=== PATIENT | female | born 1995 | race Caucasian/White ===

== ENCOUNTER 2022-12-21 16:17 | Emergency (ER) | payer OTHER, SELFPAY ==
[2022-12-21 16:30] VITALS: BP 142/83; PULSE 104; RESP 16; TEMP 36.5; O2SAT 97; BMI 35.8
--- NOTE | 2022-12-21 17:05 | ED.GENADULT ---
HPI - General Adult General Chief complaint: Sore Throat Stated complaint: Sore throat, headache Time Seen by Provider: 12/21/22 16:18 History of Present Illness HPI narrative: This 27-year-old female comes in with her mother reporting a sore throat and headache. She was seen yesterday in clinic urgent care and received prescriptions for prednisone and Augmentin. Her rapid strep test was negative there. She was told at that time to return if worsening. She states that she feels worse today in that she has a headache. She does not have any muffled voice or trismus. She does not report any fever. She does have some redness on the left side of her oropharynx and is concerned about possible tonsillar abscess. Related Data Home Medications Medication Instructions Recorded Confirmed clindamycin phosphate 1 % lotion topical 12/20/22 12/20/22 drospirenone 3 mg-ethinyl 1 tab PO DAILY 12/20/22 12/20/22 estradiol 0.02 mg tablet (Karen (28)) spironolactone 50 mg tablet 50 mg PO BID 12/20/22 12/20/22 Previous Rx's Medication Instructions Recorded amoxicillin 875 mg-potassium 1 tab PO BID 10 days #20 tabs 12/20/22 clavulanate 125 mg tablet ondansetron HCl 4 mg tablet 4 mg PO TID 10 days #30 tabs 12/20/22 prednisone 20 mg tablet 20 mg PO QDAY 5 days #5 tabs 12/20/22 Allergies Allergy/AdvReac Type Severity Reaction Status Date / Time amoxicillin [From Augmentin] AdvReac Unknown Gastrointestinal Verified 12/20/22 11:00 Upset clavulanic acid AdvReac Unknown Gastrointestinal Verified 12/20/22 11:00 [From Augmentin] Upset Review of Systems Status of ROS: Reports: 10 or more systems reviewed and unremarkable except as noted in History and below Narrative: Constitutional: No fevers, no weight gain or loss. Eyes: No discharge. No vision changes. HENT: No congestion, no ear pain. Sore throat as described above. Cardiovascular: No chest pain, no palpitations. Respiratory: No shortness of breath, no wheezes, no cough. Gastrointestinal: No abdominal pain, no vomiting, no diarrhea. Genitourinary: No dysuria, no hematuria. Musculoskeletal: Normal range of motion. Skin: No rashes, no pruritis. Neurological: No dizziness, weakness, sensory change, speech change. Endo/Heme/Allergies: No bruising or bleeding. No polydipsia. Pysch: no suicidality, no anxiety, no insomnia. All other systems reviewed and are negative. PFSH [facility] Social History Smoking Status: Never smoker Exam Narrative: Exam Narrative: Constitutional: Well-developed, well-nourished, no acute distress. HEENT: Normocephalic, atraumatic. Oropharynx has erythema without exudate or tonsillar hypertrophy. The erythema is on the left side of her oropharynx. There is no muffled voice or trismus. Neck: Normal range of motion. Nontender. Supple. Heart: Regular. No murmurs. Normal rate. Intact distal pulses. Lungs: Clear to auscultation. No chest discomfort. No wheezes, rhonchi, or rales. Abdomen: Normal bowel sounds. Nontender. No rebound tenderness. Genitalia: Deferred. Back: No midline tenderness. Normal range of motion. Extremities: Normal range of motion. No injury. Skin: Intact. No rash. Warm. No erythema or pallor. Neurologic: No altered sensation. No weakness. Alert and oriented. Psychiatric: No suicidality. No anxiety or depression. No insomnia. Nursing notes and vitals signs are reviewed. Const: Vital Signs, click to edit/add: Vital Signs - 24 hr 12/21/22 16:30 Temperature 97.7 F Pulse Rate [Right Pulse Oximeter] 104 H Respiratory Rate 16 Blood Pressure [Ri ght Upper Arm] 142/83 H Pulse Oximetry 97 Oxygen Delivery Me thod Room Air Course Vital Signs Vital signs: Initial Vital Signs Temperature 97.7 F 12/21/22 16:30 Temperature Source Temporal Artery Scan 12/21/22 16:30 Pulse Rate 104 H 12/21/22 16:30 Pulse Rhythm Regular 12/21/22 16:30 Respiratory Rate 16 12/21/22 16:30 Blood Pressure 142/83 H 12/21/22 16:30 Blood Pressure Mean 102 12/21/22 16:30 Blood Pressure Position Sitting 12/21/22 16:30 Pulse Oximetry 97 12/21/22 16:30 Oxygen Delivery Method Room Air 12/21/22 16:30 Vital Signs Temperature 97.7 F 12/21/22 16:30 Pulse Rate 104 H 12/21/22 16:30 Respiratory Rate 16 12/21/22 16:30 Blood Pressure 142/83 H 12/21/22 16:30 Pulse Oximetry 97 12/21/22 16:30 Oxygen Delivery Method Room Air 12/21/22 16:30 Temperature 97.7 F 12/21/22 16:30 Pulse Rate 104 H 12/21/22 16:30 Respiratory Rate 16 12/21/22 16:30 Blood Pressure 142/83 H 12/21/22 16:30 Pulse Oximetry 97 12/21/22 16:30 Oxygen Delivery Method Room Air 12/21/22 16:30 Medical Decision Making MDM Narrative Medical decision making narrative: This patient comes in because of instructions from her provider yesterday stating that if she is feeling worse she should come to the emergency department. There was no specification as to what particularly feeling worse would mean or indicate. She feels worsen that she has a headache. She has been taking Augmentin and prednisone as prescribed. She does not have any fever. Her rapid strep test negative yesterday. She does not have any muffled voice or trismus. I did indicate that these are signs and symptoms that would trigger some concern for a tonsillar abscess. She is not triggering any of those concerns at this time. Her sore throat is possibly due to a virus. I encouraged her to continue the medicines as prescribed and did offer a CT scan of her neck which she declined in a process of shared decision making. A prescription for Toradol is provided. Discharge Plan Discharge Clinical Impression: Pharyngitis Patient Disposition: Home, Self-Care Condition: Stable Additional Instructions: Take medication as prescribed. Follow up with MD as needed or return if worsening symptoms occur such as fever, muffled voice, or trismus. Prescriptions: No Action clindamycin phosphate 1 % lotion topical drospirenone-ethinyl estradiol [Karen (28)] 3-0.02 mg tablet 1 tab PO DAILY spironolactone 50 mg tablet 50 mg PO BID amoxicillin-pot clavulanate 875-125 mg tablet 1 tab PO BID 10 Days Qty: 20 0RF prednisone 20 mg tablet 20 mg PO QDAY 5 Days Qty: 5 0RF ondansetron HCl 4 mg tablet 4 mg PO TID 10 Days Qty: 30 0RF Follow Up/Referrals: Yusuf Caba MD [Primary Care Provider] - Stand Alone Forms: MyHealth Info Instructions
--- NOTE | 2022-12-21 17:27 | ED.NURSE ---
Called in prescription to [facility] pharmacy in [place], [place]. Cancelled at the [facility] in [place], [place] as they were not open today to get the prescription filled.
== END 2022-12-21 17:28 | disposition home or self-care (01) ==
PROVIDERS: Emergency Provider Emergency Medicine Emergency Medical Services; PCP Family Medicine
DX: J02.9 Acute pharyngitis, unspecified (principal)
CPT/HCPCS: 99283; 99284

== ENCOUNTER 2023-07-16 13:41 | Outpatient (CLI) | payer OTHER, SELFPAY ==
--- NOTE | 2023-07-16 14:00 | CT_ITS ---
Patient: JERMAINE CALLEJAS Facility:?[facility] Patient ID:?[id number] Site Patient ID:?[id number]. Site :?[id number] Study:?CT-Sinus w/o-07/16/2023 2:01:59 PM Ordering Physician:Benjamin Angulo Final Report: INDICATION: Chronic sinusitis. TECHNIQUE: Noncontrast CT images of the paranasal sinuses. COMPARISON: None. FINDINGS: No air-fluid levels to suggest acute sinusitis. Moderate right maxillary sinus mucosal thickening. The right ethmoid infundibulum is partially opacified. Minimal left maxillary sinus mucosal thickening. The left ethmoid infundibulum is widely patent. The frontal sinuses and frontal recesses are clear. The anterior and posterior ethmoid air cells are clear. Minimal opacification of the sphenoid sinuses. The right sphenoethmoid recess is patent. The left sphenoethmoidal recess is opacified. Mild 2 mm leftward nasal septal deviation and small leftward directed septal spur contacting the left inferior nasal turbinate. No nasal cavity masses. The mastoid air cells are clear. IMPRESSION: 1. Moderate right maxillary sinus mucosal thickening. There is otherwise minimal paranasal sinus mucosal disease. No air-fluid levels to suggest acute sinusitis. 2. Mild leftward nasal septal deviation and small leftward directed septal spur contacting the left inferior nasal turbinate. Please note that all CT scans at this facility use dose modulation, iterative reconstruction, and/or weight-based dosing when appropriate to reduce radiation dose to as low as reasonably achievable. Dictated by Gabino Jennings MD @ 07/16/2023 2:51:58 PM Signed by:?Gabino Jennings MD @07/16/2023 2:51:58 PM (Electronic Signature)
== END 2023-07-16 13:42 | disposition home or self-care (01) ==
LOC: CT 13:42
PROVIDERS: PCP Family Medicine; Visit Provider Otolaryngology
DX: J32.9 Chronic sinusitis, unspecified (principal); J32.0 Chronic maxillary sinusitis; J34.2 Deviated nasal septum
CPT/HCPCS: 70486

== ENCOUNTER 2023-07-27 15:16 | Outpatient (CLI) | payer OTHER, SELFPAY ==
--- NOTE | 2023-09-08 12:25 | W.PM.SLEEP ---
Sleep Study Details Details Interpreting Provider: Héctor Date of Sleep Study: 07/27/23 Sleep Study Details: STUDY TYPE:? Home unattended ? BMI:? Not recorded ORDERING PROVIDER:Verna Anaya INDICATION:? Concern about sleep apnea ? SLEEP SUMMARY:? 508 minutes monitored RESPIRATORY SUMMARY:? AHI 1.5 Low oxygen 86 Snoring 98.1% PERIODIC LIMB MOVEMENTS OF SLEEP:? Not recorded CARDIAC:? IMPRESSION:? [] RECOMMENDATION: []
== END 2023-07-27 15:17 | disposition home or self-care (01) ==
LOC: SLEEP 15:16
PROVIDERS: PCP Family Medicine; Visit Provider Otolaryngology
DX: G47.30 Sleep apnea, unspecified (principal); R06.83 Snoring
CPT/HCPCS: 95806

== ENCOUNTER 2024-03-06 07:44 | Emergency (ER) | payer BC, SELFPAY ==
--- NOTE | 2024-03-06 08:01 | ED.GENADULT ---
HPI - General Adult General Date Seen: 03/06/24 Chief complaint: Sore Throat Stated complaint: Sore throat, headache Time Seen by Provider: 03/06/24 08:00 History of Present Illness HPI narrative: 28-year-old female with a past medical history of snoring, deviated nasal septum, nasal turbinate hypertrophy and chronic right maxillary sinusitis (had ENT consultation January 2024 to consider possible surgery, but ultimately it sounds like nonsurgical management was recommended). She also had a throat infection last fall (seen in urgent care on 12/20 and in ER on 12/21/22. Per those notes she had sore throat with pain radiating to her left ear. For urgent care notes she did have small swelling and unilateral tonsillar edema. Strep swab was negative in urgent care. Urgent care suspected peritonsillar abscess but started her on Augmentin and prednisone. She came back to the ER the following day because she had developed a headache that was not getting better. They decided to continue her treatment with Augmentin and prednisone without a CT scan. Subsequently, she clinically got better. She has no history of diabetes or immunosuppression. She started developing a sore throat overnight last night. The pain is much more significant on the right and radiates to the right ear. It feels like a sharp pain. She is able to swallow but she has pain with swelling. No trouble breathing. No sores in her mouth or tongue swelling. She does not have any cough. No other body aches. No headache. 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 Related Data Home Medications ?Medication ?Instructions ?Recorded ?Confirmed clindamycin phosphate 1 % lotion topical 12/20/22 09/02/23 drospirenone 3 mg-ethinyl 1 tab PO DAILY 12/20/22 09/02/23 estradiol 0.02 mg tablet (Karen (28)) spironolactone 50 mg tablet 50 mg PO BID 12/20/22 09/02/23 Previous Rx's ?Medication ?Instructions ?Recorded amoxicillin 500 mg capsule 500 mg PO BID #20 caps 03/06/24 Allergies Allergy/AdvReac Type Severity Reaction Status Date / Time amoxicillin (From Augmentin) AdvReac Unknown Gastrointestinal Verified 09/02/23 14:31 Upset clavulanic acid (From AdvReac Unknown Gastrointestinal Verified 09/02/23 14:31 Augmentin) Upset PFSH PFSH Medical History (Updated 03/06/24 @ 10:18 by Humza Balderas MD) Seasonal allergies ?J30.2 - Other seasonal allergic rhinitis (ICD-10) Surgical History (Updated 06/24/23 @ 15:33 by Armin Bunn) History of third molar tooth extraction ?K08.409 - Partial loss of teeth, unspecified cause, unspecified class (ICD-10) Social History Smoking Status: Never smoker Exam Narrative: Exam Narrative: Constitutional: Appears well-developed and well-nourished. Alert. Conversant. Non toxic. Phonation normal. No, ?hot potato? voice. No stridor. HENT: Head: Atraumatic. Nose: Nose normal. Ears-pinnae, canals, mastoids, TMs are normal bilaterally. Mouth/Throat: Oral mucosa is clear and moist. no trismus. Tongue normal. Oral mucosa normal. She has bilateral tonsillar erythema and erythema of both peritonsillar pillars. She has exudates on both tonsils but more prominent on the right. Uvula is midline. I do not see any asymmetric swelling of the right tonsil compared to the left. No midline shift. Eyes: Conjunctivae normal. EOM normal. Pupils equal, round, and reactive to light. No scleral icterus. Neck: Normal range of motion. Neck supple. No tracheal deviation present. Cardiovascular: Normal rate, regular rhythm. No gallop. No friction rub. No murmur heard. [place], warm, dry, well perfused skin with normal capillary refill. Pulmonary/Chest: Effort normal. No stridor. No respiratory distress. No wheezes. No rales. No rhonchi . Musculoskeletal: RUE: Normal range of motion. No tenderness. No deformity LUE: Normal range of motion. No tenderness. No deformity RLE: Normal range of motion. No edema. No tenderness. No deformity LLE: Normal range of motion. No edema. No tenderness. No deformity Lymph: right anterior cervical adenopathy. Neurological: Alert and oriented to person, place, and time. Normal strength. CN II-VII intact. No sensory deficit. GCS eye subscore is 4. GCS verbal subscore is 5. GCS motor subscore is 6. Normal coordination Skin: Skin is warm and dry. No rash noted. No pallor. Normal capillary refill. Psychiatric: Normal mood. Normal affect. Const: Vital Signs, click to edit/add: Vital Signs - 24 hr 03/06/24 08:02 Temperature 100.1 F H Pulse Rate [Pulse Oximeter] 103 H Respiratory Rate 22 Blood Pressure [Ri ght Upper Arm] 118/81 Pulse Oximetry 96 Course Vital Signs Vital signs: Initial Vital Signs Temperature 100.1 F H 03/06/24 08:02 Temperature Source Temporal Artery Scan 03/06/24 08:02 Pulse Rate 103 H 03/06/24 08:02 Respiratory Rate 22 03/06/24 08:02 Blood Pressure 118/81 03/06/24 08:02 Blood Pressure Mean 93 03/06/24 08:02 Blood Pressure Position Sitting 03/06/24 08:02 Pulse Oximetry 96 03/06/24 08:02 Vital Signs Temperature 100.1 F H 03/06/24 08:02 Pulse Rate 103 H 03/06/24 08:02 Respiratory Rate 22 03/06/24 08:02 Blood Pressure 118/81 03/06/24 08:02 Pulse Oximetry 96 03/06/24 08:02 Temperature 100.1 F H 03/06/24 08:02 Pulse Rate 103 H 03/06/24 08:02 Respiratory Rate 22 03/06/24 08:02 Blood Pressure 118/81 03/06/24 08:02 Pulse Oximetry 96 03/06/24 08:02 Medical Decision Making MDM Narrative Medical decision making narrative: This patient presented with sore throat and clinical evidence of pharyngitis. The rapid strep test is positive. She has much more pain on the right tonsil than on the left and was concerned about also possible right peritonsillar abscess but on my exam I do not see any asymmetry, midline shift or other objective evidence for abscess. We discussed possible imaging. We also discussed risk of radiation. Using shared decision making we decided to hold off. No other objective evidence for retropharyngeal abscess, Lemierre's Syndrome, epiglottis, or Keon's angina. The patient's symptoms are consistent with streptococcal pharyngitis. I have recommended treatment with antibiotics and analgesics. Amoxicillin 500 b.i.d. for 10 days, per current recommendations. Return if increasing pain, change in voice, neck pain, vomiting, fever, or shortness of breath. Follow-up with primary physician if not improving in 3-5 days Lab Data Labs: Lab Results 03/06/24 Range/Units 08:50 Group A Strep DNA DETECTED A (Not Detectd) Discharge Plan Discharge Clinical Impression: Strep pharyngitis Patient Disposition: Home, Self-Care Condition: Stable Instructions: Strep Throat (DC) Additional Instructions: As we discussed, please come back to the ER or see your doctor right away if you have any concerns especially worsening pain, worsening swelling, trouble swallowing, trouble breathing. Please start on the antibiotics this morning. You should start to feel better after 2 or 3 days. You are okay to go back to work 24 hours after 1st dose of antibiotic. Prescriptions: New amoxicillin 500 mg capsule 500 mg PO BID Qty: 20 0RF No Action clindamycin phosphate 1 % lotion topical drospirenone-ethinyl estradiol [Karen (28)] 3-0.02 mg tablet 1 tab PO DAILY spironolactone 50 mg tablet 50 mg PO BID Follow Up/Referrals: Yusuf Caba MD [Primary Care Provider] - Stand Alone Forms: AMS [employer] Info Instructions
[2024-03-06 08:02] VITALS: BP 118/81; PULSE 103; RESP 22; TEMP 37.8; O2SAT 96; BMI 33.3
[2024-03-06 09:22] LABS: Strep A DNA Probe* DETECTED (Not Detectd)
== END 2024-03-06 10:28 | disposition home or self-care (01) ==
PROVIDERS: Emergency Provider Emergency Medicine; PCP Family Medicine
DX: J02.0 Streptococcal pharyngitis (principal)
CPT/HCPCS: 87651; 99282; 99283

== ENCOUNTER 2025-01-20 08:03 | Outpatient (CLI) | payer BC, SELFPAY ==
--- NOTE | 2025-01-20 08:15 | CRLHL7_ITS ---
For Patients: As a result of the Cures Act, medical imaging exams and procedure reports are released immediately into your electronic medical record. You may view this report before your referring provider. If you have questions, please contact your health care provider. OB ULTRASOUND INDICATION: Dating and viability. TECHNIQUE: Real time grayscale imaging of the fetus was performed. Transvaginal. Transvaginal imaging performed to better demonstrate the endometrium and ovaries. LMP: 11/22/2024. ALONSO by LMP: 08/29/2025. GA: 8 w, 3 d. Previous US: No. CRL: 1.5 cm. 8 w 0 d. ALONSO: 09/01/2025. FHR: 163 BPM. Gestational sac: 3.4 cm. Appears within normal limits. Yolk sac: 3.0 mm. Appears within normal limits. Right ovary: 2.8 x 1.9 x 1.9 cm. Left ovary: 3.3 x 2.2 x 2.4 cm. IMPRESSION: Single living intrauterine measures 8 weeks 0 days with sonographic due date 09/01/2025. Marco Yap M.D. Diagnostic Radiologist [email or web address] [place]/hung persaud/Dictated by: Marco Yap MD @ 01/20/2025 12:26:00 PM (Electronically Signed)
== END 2025-01-20 08:04 | disposition home or self-care (01) ==
LOC: US 08:06
PROVIDERS: Visit Provider Physician Assistant
DX: Z34.91 Encounter for supervision of normal pregnancy, unspecified, first trimester (principal); Z3A.08 8 weeks gestation of pregnancy
CPT/HCPCS: 76817; 83021; 86592; 86703; 86704; 86706; 86762; 86787; 86803; 86850; 86900; 86901; 87086; 87340; 87491; 87591

== ENCOUNTER 2025-02-01 06:09 | Emergency (ER) | payer BC, SELFPAY ==
--- OUTSIDE RECORDS SUMMARY | 2025-02-01 06:11 | XMS_ITS | Clinical Summary ---
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 Role Phone Unavailable Primary Care Provider Unavailabl e Immunizations Immunization Administration Dates Next Due COVID-19 MONOVALENT 12+ ([employer]) 05/13/2020,03/25 Social History Tobacco Use Types Packs/Day Years Used Date Smoking Tobacco: Never Assessed Adolescent Education Answer Date Record ed Getting School Help Needed Not on file 12/21 Comments Unknown Sex and Gender Information Value Date Recorded Sex Assigned at Not on file Legal Sex Female 3:22 AM [employer] Gender Identity Not on file Sexual Orientation Not on file Plan of Treatment Not on file Insurance [facility] OUT OF STATE
--- OUTSIDE RECORDS SUMMARY | 2025-02-01 06:11 | XMS_ITS | Clinical Summary ---
Author Organization [facility] Address [address] [place] [address] Care Team Providers Care Chief Telephone Operator Name Role Phone Elder Patel M.D. Primary Care Provider [phone] Source Comments Patient records contain information from all sites at [facility]. For routine questions regarding patient records, call [phone] during business hours, M-F 8:00 AM - 5:00 PM Central Time. Record requests for emergency care only can be directed to [phone] at any time.[facility] Allergies No known active allergies Medications spironolactone (Aldactone) 50 mg tablet Take 2 tablets (100 mg total) by mouth daily. 180 tablet 3 06/23/2024 Active Active Problems Problem Noted Date Diagnosed Date Acne Vulgaris 06/23/2024 Resolved Problems Problem Noted Date Diagnosed Date Resolved Date Menstrual Irregularity 05/28/201709/13 Management Contraception Prescription 05/28/2017 06/23/2024 Immunizations Immunization Administration Dates Next Due 4vHPV (discontinued) 07/10/2010,12/07/2009,11/01 DTaP (Infanrix, [employer]) 10/21/1999,11/1996,03/29/1996,02/01,1995 HepA Pediatric/Adolescent 07/22/2013 HepB Pediatric/Adolescent 09/06/1996,03/29/1996, 02/02/1996 HepB, Unspecified 09/06/1996,03/29/1996,02/01/19 96 Hib, Unspecified 11/29/1996, 7,02/02/1996,10/29 Influenza, Seasonal, Injectable 01/16/2006 MCV4 (Menactra)(Discontinued) 11/01/2009 MCV4 (Menveo) 07/22/2013 MMR 11/05/2007,09/06/1996 Meningococcal ACWY, Unspecified 07/22/2013,11/01 Polio, Unspecified 10/21/1999, 7,02/02/1996,10/29 Tdap 09/13/2020,11/05/2007 TYE 11/05/2007,03/04/1999 influenza trivalent vaccine (6 months and older)(PF) 12/29/2012,12/17/2011,01/07/2011,12/25 influenza vaccine quad (FLUZONE/FLUARIX) (6 months and older)(PF) 12/12/2019,01/10/2019,01/22/2018 Family History Medical History Relation Name Comments Pulmonary embolism Cousin Annabella (maternal) No Known Problems Father Williams No Known Problems Mother Codie No Known Problems Sister Soledad Breast cancer (in one breast) Neg Hx Colon cancer Neg Hx Heart disease Neg Hx Relation Name Status Comments Cousin Annabella (maternal) Father Williams Mother Codie Sister Soledad Social History Tobacco Use Types Packs/Day Years Used Date Smoking Tobacco: Never Passive Smoke Exposure: Never Smokeless Tobacco: Never Tobacco Cessation:Counseling Given: Not Answered Alcohol Use Standard Drinks/Week Comments Yes 1 (1 standard drink = 0.6 oz pur e alcohol) [facility] Utilities Answer Date Recorded In the past 12 months has e [employer], [employer], or water Niko [employer] threatened to shut off services in your home? No 06/22/2024 Humiliation, Afraid, Rape, and Kick questionnair e Answer Date Recorded Within the last year, have y ou been afraid of your partner or ex-partner? No 04/04/2022 Within the last year, have y ou been humiliated or emotionally abused in other ways by your partner or ex-partner? No Within the last year, have y ou been kicked, hit, slapped, or otherwise physically hurt by your partner or ex-partner? No 04/04/2022 Within the last year, have y ou been raped or forced to have any kind of sexual activity by your partner or ex-partner? No 04/04/2022 Hunger Vital Sign Answer Date Recorded Within the past 12 months, y ou worried that your food would run out before you got the money to buy more. Never true 06/23/19 25 Within the past 12 months, t he food you bought just didn't last and you didn't have money to get more. Never true 06/22/2024 PRAPARE - Transportation Answer Date Re corded In the past 12 months, has l ack of transportation kept you from medical appointments or from getting medications? No 04/2024 In the past 12 months, has l ack of transportation kept you from meetings, work, or from getting things needed for daily living? No 06/22/2024 Housing Stability Answer Date Recorded What is your living situation today? I [facility] place [facility] 06/22/2024 Education Answer Date Recorded What is the highest level of school you have completed or the highest degree you have received? 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 QUALIFIED, JAMIL) 04/04/2022 Comments No Sex and Gender Information Value Date Recorded Sex Assigned at Female 05/28/2017 9:15 AM TABLET MAKING MACHINE OPERATOR HELPER Legal Sex Female 4:50 PM TABLET MAKING MACHINE OPERATOR HELPER Gender Identity Female 05/28/2017 9:15 AM TABLET MAKING MACHINE OPERATOR HELPER Sexual Orientation Straight 05/28/2017 9: 15 AM TABLET MAKING MACHINE OPERATOR HELPER Last Filed Vital Signs Vital Sign Reading Time Taken Comments Blood Pressure 123/81 06/23/2024 2:09 PM CDT Pulse 93 06/23/2024 2:09 PM CDT Temperature 36.8 C (98.2 F) 06/23/2024 2:09 PM CDT Respiratory Rate 20 04/08/2023 3:10 PM TABLET MAKING MACHINE OPERATOR HELPER Oxygen Saturation 100% 06/23/2024 2:09 PM CDT Inhaled Oxygen Concentration - - Weight 100 kg (221 lb) 06/23/2024 2:09 PM CDT Height 167 cm (5' 5.75) 06/23/2024 2:09 PM CDT Body Mass Index 35.94 06/23/2024 2:09 PM CDT Plan of Treatment Health Maintenance Due Date Last Done Comments Hepatitis C Screening 1995 COVID-19 Vaccine (5 - 2025-26 season) 2024 01/07/2022, 01/01/2021, 05/13/2020, Additional history exists Influenza Vaccine (#1) 2024 , 02/14/2023, 01/07/2022, Additional history exists Cervical/Vaginal Cancer Screening 04/08/2026 04/08/2023, 09/13/2020, 05/02/2016 DTaP,Tdap,and Td Vaccines (8 - Td or Tdap) 09/13/2030 09/13/2020, 11/05/2007, 10/21/1999, Additional history exists Hepatitis B Vaccines Completed 09/06/1996, 09/06/1996, 03/29/1996, Additional history exists IPV Vaccines Completed 10/21/1999, 09/1996, 02/02/1996, Additional history exists Varicella Vaccines Completed 11/05/2007, 03/04/1999 HPV Vaccines Completed 07/10/2010, 11/21, 11/01/2009 Depression Screening (Annual PHQ-2) Completed 06/23/2024, 06/22/2024 Pneumococcal vaccine (0-49 years) Aged Out No longer eligible based on patient's age to complete this topic Procedures Procedure Name Priority Date/Time Associated Diagnosis Comments THINPREP SCREEN HPV REFLEX Routine 04/08/2023 3:44 PM TABLET MAKING MACHINE OPERATOR HELPER General Medical Examination Adult from Last 3 Months or Most Recently Relevant to Health Maintenance Results * ThinPrep Screen HPV Reflex (04/08/2023 3:44 PM TABLET MAKING MACHINE OPERATOR HELPER) 04/13/2023 2:16 PM TABLET MAKING MACHINE OPERATOR HELPER [facility] Report electronically signed by DAVID Godinez(ASCP) I verify that I have examined all relevant slides/materials for the specimen(s) and rendered or confirmed the diagnosis. 04/13/2023 2:16 PM TABLET MAKING MACHINE OPERATOR HELPER [facility] Gross Description Received specimen in a ThinPrep vial. 04/13/2023 2:16 PM TABLET MAKING MACHINE OPERATOR HELPER [facility] Pap Test Source Cervical/Endocervi karrie 04/13/2023 2:16 PM TABLET MAKING MACHINE OPERATOR HELPER [facility] Hormone Therapy/Contracep tives None/Not known 04/13/2023 2:16 PM TABLET MAKING MACHINE OPERATOR HELPER [facility] Interpretation Cervical/Endocervi karrie (ThinPrep): Satisfactory for Evaluation Negative for Intraepithelial Lesion or Malignancy 04/13/2023 2:16 PM TABLET MAKING MACHINE OPERATOR HELPER [facility] Thin Prep Vial (Cervix/Endocerv ix) 04/08/2023 3:44 PM TABLET MAKING MACHINE OPERATOR HELPER 04/09/2023 7:47 AM TABLET MAKING MACHINE OPERATOR HELPER us Clara Benavides C.N.P. LAB PAP PATHDX ORDERABLES Final Result [facility] [address] [place] [address], [place] [facility] [address] [facility] [address] [place] [address] from Last 3 Months or Most Recently Relevant to Health Maintenance Insurance [facility] Care Teams Chief Telephone Operator Relationship Specialty Start Date End Date Elder Patel M.D. [address] [place] [phone] PCP - General 12/01/18
--- OUTSIDE RECORDS SUMMARY | 2025-02-01 06:11 | XMS_ITS | Clinical Summary ---
Author Organization [facility] Address [address] [place] [id number] Care Team Providers Care Property Manager [facility] Allergies No known active allergies Medications drospirenone-eth inyl estradiol (TONNY) 3-0.02 mg tabletIndication s:Irregular menses,Acne vulgaris Take 1 tablet by mouth once daily 84 tablet 06/18/2016 Active Encounters Date Type Department Care Team Description 01/19/2025 6:23 PM CDT - 01/19/2025 8:57 PM CDT Emergency [facility] [address] [place] [address] Sneha Ferrera, PAEvonC Vaginal bleeding in , first trimester (HC) (Primary Dx) Discharge Disposition: Home Self Care 01/19/2025 Travel from Last 3 Months Immunizations Immunization Administration Dates Next Due DTaP 10/21/1999, 7,03/29/1996,02/01,1995 Hepatitis A (Peds) 07/22/2013 Hepatitis B (Peds) 09/06/1996,03/29/1996, 996 Hib Conjugate, Unspecified 11/29/1996,,02/02/1996,10/29 Human Papilloma Virus Vaccine 07/10/2010, 010,11/01/2009 MENINGOCOCCAL VACCINE 2 VIAL [id number] (MENVEO) 07/22/2013 MMR 11/05/2007,09/06/1996 Meningococcal Vaccine (Menactra) 11/01/2009 Polio Virus, Unspecified 10/21/1999,09/1996,02/02/1996,10/29 Tdap 11/05/2007 Varicella Vaccine 11/05/2007,03/04/1999 Family History Medical History Relation Name Comments Good Health Father Unknown Maternal Grandfather Unknown Maternal Grandmother Good Health Mother Unknown Paternal Grandfather Unknown Paternal Grandmother Good Health Sister 2 Relation Name Status Comments Father Alive Maternal Grandfather Maternal Grandmother Mother Alive Paternal Grandfather Alive Paternal Grandmother Sister 1 Alive Sister 2 Social History Tobacco Use Types Packs/Day Years Used Date Smoking Tobacco: Never Smokeless Tobacco: Never Alcohol Use Standard Drinks/Week Comments Yes 0 (1 standard drink = 0.6 oz pur e alcohol) 1 to 2 a week Comments No Sex and Gender Information Value Date Recorded Sex Assigned at Not on file Legal Sex Female 6:26 AM KILN TESTER Gender Identity Not on file Sexual Orientation Not on file Obstetrics History Last Filed Vital Signs Vital Sign Reading Time Taken Comments Blood Pressure 120/84 01/19/2025 6:26 PM CDT Pulse 78 01/19/2025 6:26 PM CDT Temperature 36.3 C (97.3 F) 01/19/2025 6:26 PM CDT Respiratory Rate 16 01/19/2025 6:26 PM CDT Oxygen Saturation 98% 01/19/2025 6:26 PM CDT Inhaled Oxygen Concentration - - Weight 99.8 kg (220 lb) 01/19/2025 6:26 PM CDT Height 167.6 cm (5' 6) 08/23/2015 3:32 PM CDT Body Mass Index - - Plan of Treatment Health Maintenance Due Date Last Done Comments HIV for age 15-65 09/02/2010 Hepatitis C screening for ag e 18-79 09/02/2013 BMI (ht and wt on same day) for age 18+ 08/22/2016 08/23/2015 Depression screening for age 12+ 08/22/2016 08/23/2015 Pap test for age 21-65 09/02/2016 Tetanus booster 11/04/2017 11/05/2007 Influenza Vaccine (#1) 2024 RSV vaccine for adults or (1 - 1-dose 75+ series) 09/02/2070 Hepatitis B series for 19+ Completed 09/06, 03/29/1996, 02/02/1996 HPV series for age 9-45 Completed 07/11/19 11, 12/07/2009, 11/01/2009 Pneumococcal series for age 6-49 Aged Out No longer eligible b ased on patient's age to complete this topic Procedures Procedure Name Priority Date/Time Associated Diagnosis Comments US OB 1ST TRI SINGLE TA STAT 01/19/2025 7:41 PM CDT from Last 3 Months Results * US OB 1ST TRI SINGLE TA (01/19/2025 7:41 PM CDT) Anatomical Region Laterality Modality , 1ST TRIMESTER Ultrasound 01/19/2025 7:41 PM CDT Addenda Addendum by Kenny Dwyer MD on 01/19/2025 9:09 PM CDT For Patients: As a result of the Cures Act, medical imaging exams and procedure reports are released immediately into your electronic medical record. You may view this report before your referring provider. If you have questions, please contact your health care provider. EXAM: US OB 1ST TRI SINGLE TA LOCATION: [facility] DATE: 01/19/2025 INDICATION: Abnormal bleeding COMPARISON: None. TECHNIQUE: Transabdominal scans were performed. FINDINGS: UTERUS: Single normal appearing intrauterine gestation sac. CRL: Measures [1 2 cm, equals 7 weeks, 2 days. RATE OF CARDIAC ACTIVITY: 156 bpm. AMNIOTIC FLUID: Normal. PLACENTA: Not yet formed. No evidence for sub-chorionic hemorrhage. RIGHT OVARY: Normal. LEFT OVARY: Corpus luteum. IMPRESSION: 1. Single intrauterine gestation with cardiac activity at 7 weeks, 2 days, with EDC of 09/05/2025. Impressions 01/19/2025 7:53 PM CDT 1. Single intrauterine gestation with cardiac activity at 7 weeks, 2 days, with EDC of 09/05/2025. Narrative 01/19/2025 7:53 PM CDT For Patients: As a result of the Cures Act, medical imaging exams and procedure reports are released immediately into your electronic medical record. You may view this report before your referring provider. If you have questions, please contact your health care provider. EXAM: US OB 1ST TRI SINGLE TA LOCATION: [facility] DATE: 01/19/2025 INDICATION: Abnormal bleeding COMPARISON: None. TECHNIQUE: Transabdominal scans were performed. FINDINGS: UTERUS: Single normal appearing intrauterine gestation sac. CRL: Measures [1 2 cm, equals 7 weeks, 2 days. RATE OF CARDIAC ACTIVITY: 156 bpm. AMNIOTIC FLUID: Normal. PLACENTA: Not yet formed. No evidence for sub-chorionic hemorrhage. RIGHT OVARY: Normal. LEFT OVARY: Corpus luteum. Procedure Note Kenny Dwyer MD - 01/19/2025 For Patients: As a result of the Cures Act, medical imagingexams and procedure reports are released immediately into your electronicmedical record. You may view this report before your referring provider.If you have questions, please contact your health care provider. EXAM: US OB 1ST TRI SINGLE TA LOCATION: [facility] DATE: 01/19/2025 INDICATION: Abnormal bleeding COMPARISON: None. TECHNIQUE: Transabdominal scans were performed. FINDINGS: UTERUS: Single normal appearing intrauterine gestation sac. CRL: Measures [1 2 cm, equals 7 weeks, 2 days. RATE OF CARDIAC ACTIVITY: 156 bpm. AMNIOTIC FLUID: Normal. PLACENTA: Not yet formed. No evidence for sub-chorionic hemorrhage. RIGHT OVARY: Normal. LEFT OVARY: Corpus luteum. IMPRESSION: 1. Single intrauterine gestation with cardiac activity at 7 weeks, 2days, with EDC of 09/05/2025. Sneha Ferrera PA-C US Edited Result - Final from Last 3 Months Insurance [facility] Care Teams Property Manager Relationship Specialty Start Date End Date Desiree [facility] - PCP - General 06/19/16
[2025-02-01 06:18] VITALS: BP 118/79; PULSE 84; RESP 18; O2SAT 99; BMI 37.4
--- NOTE | 2025-02-01 06:37 | CRLHL7_ITS ---
For Patients: As a result of the Century Cures Act, medical imaging exams and procedure reports are released immediately into your electronic medical record. You may view this report before your referring provider. If you have questions, please contact your health care provider. INDICATION: , bleeding at 10 weeks TECHNIQUE: Ultrasound OB pelvis transvaginal. Real-time osorio-scale imaging of the pelvis was performed. COMPARISON: 01/20/2025 FINDINGS: Clinical Age: 10 weeks 1 day (ALONSO 08/29/2025 based on LMP) Sonographic imaging demonstrates a single living intrauterine gestation. The embryo demonstrates a regular cardiac rate measuring 169 beats per minute. The embryo`s crown rump length measurement of 2.9 cm corresponds to a gestational age of 9 weeks 5 days which is within standard deviation the clinical age. There is a normal appearing yolk sac. There are no gross abnormalities noted within the embryo at this early state of development. The placenta has not yet developed. Hypoechoic perigestational collection left superior measuring 1.0 x 1.2 x 1.1 centimeters. Hypoechoic perigestational collection left inferior measuring 1.4 x 1.1 x 1.4 centimeters. Maternal right ovary measures 3.4 x 1.5 x 1.5 centimeters and is unremarkable. Maternal left ovary measures 3.4 x 1.7 x 3.2 centimeters and contains a 2.7 centimeter corpus luteum. There are no suspicious fluid collections noted in the cul-de-sac. IMPRESSION: 1. Single live intrauterine gestation with a clinical age of 10 weeks 1 day. 2. Small perigestational bleed measuring 1.2 centimeters left superior and 1.4 centimeters left inferior. Follow-up ultrasound can be considered in 1 week to assess for resolution. Dictated by Keo Mon MD @ 02/01/2025 7:14:54 AM (Electronically Signed)
--- NOTE | 2025-02-01 06:43 | ED.GENADULT ---
HPI - General Adult General Chief complaint: Vaginal Bleeding Stated complaint: 10 weeks , bleeding Time Seen by Provider: 02/01/25 06:25 Source: patient Mode of arrival: ambulatory Limitations: no limitations History of Present Illness HPI narrative: 29-year-old primigravid 10 weeks gestation presents to the ED with vaginal bleeding overnight that has since stopped. Patient awoke with blood in her underwear. She had a fall three days ago, had slight spotting the next morning, did follow-up with her Ob provider and had reassuring movement on ultrasound. No problems then for a day and a half and then had spotting overnight tonight. No severe bleeding, no passed tissue. No dizziness, lightheadedness or tachycardia. No GI changes, rectal bleeding or urinary changes. No fevers. Blood type O positive. No cramping or pelvic pain. Has not taken any medications to help with symptoms today. Prior OB visit reviewed. Allergies to Augmentin causing GI upset. Home medications Zyrtec and vitamin. Nonsmoker. ROS is notable for the vaginal bleeding as above, otherwise denies times 12 systems. Related Data Home Medications ?Medication ?Instructions ?Recorded ?Confirmed [id number] 3 fatty no.1 27 cap PO 01/20/25 01/31/25 mg-1 mg-300 mg capsule cetirizine 10 mg capsule (Zyrtec) 10 mg PO QDAY PRN 01/20/25 01/31/25 Allergies Allergy/AdvReac Type Severity Reaction Status Date / Time amoxicillin (From Augmentin) AdvReac Unknown Gastrointestinal Verified 01/31/25 09:38 Upset clavulanic acid (From AdvReac Unknown Gastrointestinal Verified 01/31/25 09:38 Augmentin) Upset PFSH PFSH Medical History Seasonal allergies ?J30.2 - Other seasonal allergic rhinitis (ICD-10) Surgical History History of third molar tooth extraction ?K08.409 - Partial loss of teeth, unspecified cause, unspecified class (ICD-10) Social History Narrative: 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 Marital status: Significant other. Gnosticist/cultural needs: no. Chemical or radiation exposure: no. Pre- tobacco use: no. Pre- alcohol use: 3 per week. Current tobacco use: no. Current alcohol use: no Recreational drug use: no. Dietary restrictions: no. Blood transfusion acceptable in an emergency: yes. PSYCHOSOCIAL HISTORY: History of depression or currently depressed: Denies. Current or past physical, emotional, or sexual mistreatment: Denies. Problems that will make it hard to make it to appointments: Denies What is your current living situation?: I presently have a place to live Problems where you live: no known problems In the past 12 months, utilities in danger of being shut off: no In past 12 months, lack of transportation kept you from medical appts, meetings, work, or getting things needed for daily living: no In the past 12 mos, have been you worried that your food would run out before you had money to buy more?: never true In the past 12 mos, the food you bought just didn't last and you didn't have money to buy more?: never true Smoking Status: Never smoker How often do you have a drink containing alcohol: never AUDIT-C Alcohol total score: 0 Non-prescribed substance use: denies use How often does anyone, including family, friends and others, physically hurt you: never How often does anyone, including family, friends and others, insult or talk down to you: never How often does anyone, including family, friends and others, threaten you with harm: never How often does anyone, including family, friends and others, scream or curse at you: never Exam Const: Vital Signs, click to edit/add: Vital Signs - 24 hr 02/01/25 06:18 Pulse Rate [Left P ulse Oximeter] 84 Respiratory Rate 18 Blood Pressure [Ri ght Upper Arm] 118/79 Pulse Oximetry 99 Oxygen Delivery Me thod Room Air Documenting provider has reviewed patient's vital signs: yes Common normals: no apparent distress General appearance: cooperative and well kempt HENMT: Common normals: normocephalic Head and scalp: normocephalic Face and sinus: normal facial exam Resp: Common normals: normal respiratory effort and clear to auscultation bilaterally Effort & inspection: able to speak in complete sentences Auscultation: clear to auscultation bilaterally Cardio: Common normals: regular rate, regular rhythm, S1 normal heart sound, S2 normal heart sound and no murmurs Rate: regular rate Rhythm: regular rhythm Heart sounds: S1 normal and S2 normal GI: Common normals: Normal to inspection, nondistended, normoactive bowel sounds present, soft to palpation, non-tender, no hepatosplenomegaly and no masses Palpation: soft and no hepatosplenomegaly Psych: Appearance: well kempt Attitude: engaged Activity/motor behavior: appropriate eye contact Mood and affect: euthymic mood Insight: insight good Judgement: judgment good Skin: Common normals: no rashes or lesions noted General skin exam: no rashes or lesions noted Course Course ED Course: 29-year-old primigravida 10 weeks gestation presenting with episode of vaginal bleeding, now resolved. Differential diagnosis including subchorionic hemorrhage, miscarriage, threatened miscarriage, other etiologies including urinary, GI, etc.. Will obtain pelvic ultrasound. Blood type noted to be O positive in records, does not need RhoGAM consideration. I do not think that blood work would be helpful since she is not tachycardic, hypotensive or showing signs of persistent bleeding. Await ultrasound findings in the determine if further management is needed. Consider OB consult Reevaluation(s) Time of Reevaluation #1: 07:28 Reevaluation #1: Counseled patient on findings. Ultrasound shows viable Torres IUP, continued growth. Two small areas of subchorionic hemorrhage potentially reflecting the areas of previous bleeding from earlier today, no other major abnormalities. Counseled patient on next steps in management. Alarm symptoms reviewed that would warrant return to the ED. surgery turned to school, work, exercise at this time. Follow-up with OB next week. Alarm symptoms reviewed that would warrant sooner follow-up or alarm. Vital Signs Vital signs: Initial Vital Signs Pulse Rate 84 02/01/25 06:18 Pulse Rhythm Regular 02/01/25 06:18 Respiratory Rate 18 02/01/25 06:18 Blood Pressure 118/79 02/01/25 06:18 Blood Pressure Mean 92 02/01/25 06:18 Blood Pressure Position Sitting 02/01/25 06:18 Pulse Oximetry 99 02/01/25 06:18 Oxygen Delivery Method Room Air 02/01/25 06:18 Vital Signs Pulse Rate 84 02/01/25 06:18 Respiratory Rate 18 02/01/25 06:18 Blood Pressure 118/79 02/01/25 06:18 Pulse Oximetry 99 02/01/25 06:18 Oxygen Delivery Method Room Air 02/01/25 06:18 Pulse Rate 84 02/01/25 06:18 Respiratory Rate 18 02/01/25 06:18 Blood Pressure 118/79 02/01/25 06:18 Pulse Oximetry 99 02/01/25 06:18 Oxygen Delivery Method Room Air 02/01/25 06:18 Medical Decision Making Imaging Data Pelvic ultrasound: Attestation: I have reviewed the pertinent imaging results. My impression: Torres IUP, living with strong heartbeat normal fluid Radiologist's impression: IMPRESSION: 1. Single live intrauterine gestation with a clinical age of 10 weeks 1 day. 2. Small perigestational bleed measuring 1.2 centimeters left superior and 1.4 centimeters left inferior. Follow-up ultrasound can be considered in 1 week to assess for resolution. Dictated by Keo Mon MD @ 02/01/2025 7:14:54 AM Discharge Plan Discharge Clinical Impression: Subchorionic hemorrhage in first trimester Patient Disposition: Home w/ Parent or Adult Condition: Improved Instructions: Subchorionic Hemorrhage (ED) Additional Instructions: As we discussed, at this point the baby looks to be growing and developing normally. There are 2 small areas of bleeding between where the placenta is starting to attach and the uterine wall. This may stay the same, may worsen or may dissolve and go away. You may still have some spotting. I want you to come back to the emergency room if you have severe bleeding to the point where your soaking through a pad per hour for more than an hour or if you have severe dizziness, lightheadedness or signs of severe pain. If you do have more spotting, put on a pad so that you can monitor it and check in with your Ob provider regarding next steps in management. Would have you make an appointment with them next week just to check in and see how things are going. Sometimes they choose to continue monitoring the subchorionic hemorrhages but often, we do not. Your cleared to return to work, exercise and all other typical duties at this time. Activity Level: Activity as Tolerated Discharge Diet: Regular Prescriptions: No Action CIS-uzte-EQ-omega 3 fatty no.1 27-1-300 mg capsule PO Zyrtec 10 mg capsule 10 mg PO QDAY PRN Follow Up/Referrals: Provider,Not a Local [Primary Care Provider, Family Practice] Stand Alone Forms: [facility] Info Instructions
== END 2025-02-01 07:51 | disposition home or self-care (01) ==
PROVIDERS: Emergency Provider Family Medicine
DX: O46.8X1 Other antepartum hemorrhage, first trimester (principal)
CPT/HCPCS: 76817; 99283